=== PATIENT | female | born 2000 | race Caucasian/White ===

== ENCOUNTER 2023-03-29 20:09 | Emergency (ER) | payer BC | END 2023-03-29 21:36 | disposition left against medical advice (07) | LOC: ER 20:18 | DX: G43.909 Migraine, unspecified, not intractable, without status migrainosus (principal); Z53.21 Procedure and treatment not carried out due to patient leaving prior to being seen by health care provider ==

== ENCOUNTER 2023-03-29 21:48 | Emergency (ER) | payer BC ==
[~2023-03-29] VITALS: Ht 175.3 cm; Wt 72.6 kg
[2023-03-29] MEDS ORDERED: diphenhydrAMINE HCL 50 MG/ML VIAL ONE (22:45)
[2023-03-29] MEDS ORDERED: KETOROLAC TROMETHAMINE 15 MG/ML VIAL ONE (22:46)
[2023-03-29] MEDS ORDERED: METOCLOPRAMIDE HCL 10 MG/2 ML VIAL ONE (22:46)
[2023-03-29] MEDS ORDERED: ACETAMINOPHEN ES 500 MG TABLET ONE (22:46)
[2023-03-29] MEDS: IV NS 0.9% 1,000 ML BAG IV ONE (22:48)
[2023-03-29] MEDS: ACETAMINOPHEN ES 500 MG TABLET PO ONE (22:48)
[2023-03-29] MEDS: METOCLOPRAMIDE HCL 10 MG/2 ML VIAL IV ONE (22:48)
[2023-03-29] MEDS: KETOROLAC TROMETHAMINE 15 MG/ML VIAL IV ONE (22:48)
[2023-03-29] MEDS: diphenhydrAMINE HCL 50 MG/ML VIAL IV ONE (22:48)
[2023-03-30 00:23] VITALS: BP 122/87; TEMP 98; O2SAT 98
== END 2023-03-30 00:24 | disposition home or self-care (01) ==
LOC: EDUNIT# 21:48 → ER 21:52
DX: G43.909 Migraine, unspecified, not intractable, without status migrainosus (principal)
CPT/HCPCS: 99284; 96374; 96375; 96361; J1200; J2765; J7030; J1885